=== PATIENT | male | born 1980 | race African-American/Black ===

== ENCOUNTER 2016-08-22 13:11 | Emergency (ER) | payer BC | END 2016-08-22 15:55 | disposition home or self-care (01) | LOC: D.ER 13:11 | DX: S61.211A Laceration without foreign body of left index finger without damage to nail, initial encounter (principal); X58.XXXA Exposure to other specified factors, initial encounter; Y93.89 Activity, other specified; Y92.019 Unspecified place in single-family (private) house as the place of occurrence of the external cause ==

== ENCOUNTER 2017-02-06 09:09 | Emergency (ER) | payer MEDICAID | END 2017-02-06 10:54 | disposition home or self-care (01) | LOC: D.ER 09:09 | DX: S60.221A Contusion of right hand, initial encounter (principal); W22.01XA Walked into wall, initial encounter; Y93.89 Activity, other specified; Y92.019 Unspecified place in single-family (private) house as the place of occurrence of the external cause ==

== ENCOUNTER 2017-12-01 21:25 | Emergency (ER) | payer MEDICAID | END 2017-12-01 23:45 | disposition home or self-care (01) | LOC: D.ER 21:25 | DX: S83.91XA Sprain of unspecified site of right knee, initial encounter (principal); X58.XXXA Exposure to other specified factors, initial encounter; Y93.89 Activity, other specified; Y92.89 Other specified places as the place of occurrence of the external cause ==

== ENCOUNTER 2017-12-10 08:02 | Emergency (ER) | payer MEDICAID | END 2017-12-10 10:18 | disposition home or self-care (01) | LOC: D.ER 08:02 | DX: M54.5 Low back pain (principal); M54.30 Sciatica, unspecified side; F17.200 Nicotine dependence, unspecified, uncomplicated ==

== ENCOUNTER → 2018-02-07 18:18 | Outpatient (CLI) | payer MEDICAID | END | disposition home or self-care (01) | LOC: D.MRI 18:18 | DX: S46.101A Unspecified injury of muscle, fascia and tendon of long head of biceps, right arm, initial encounter (principal); M79.601 Pain in right arm ==